=== PATIENT | female | born 1970 | race Caucasian/White ===

== ENCOUNTER 2019-01-14 20:00 | Inpatient (IN) | payer MEDICAID ==
[2019-01-14] MEDS: SODIUM CHLORIDE 0.9% 1L BAG IV* (20:50)
[2019-01-14] MEDS: morphine 4 MG/ML VIAL IV (20:52)
[2019-01-14] MEDS: ONDANSETRON 4 MG INJ IV (20:52)
[2019-01-14] MEDS: PIPER-TAZO 3.375 GM IV (PMX) 100 ML IVPB (20:53)
[2019-01-14] MEDS: ACETAMINOPHEN 325 MG TAB PO (20:53)
[2019-01-14 20:57] LABS: ABNORMAL IP MESSAGE 1; HEMATOCRIT 33.4 % (37.0-47.0); HEMOGLOBIN 11.1 g/dl (12.0-16.0); MEAN CORPUSCULAR HEMOGLOBIN 27.5 pg (29.0-33.0); MEAN CORPUSCULAR HGB CONC 33.2 g/dl (32.0-37.0); MEAN CORPUSCULAR VOLUME 82.7 fl (82.0-101.0); MEAN PLATELET VOLUME 13.8 fl (7.4-10.4); NUCLEATED RED BLOOD CELLS% 0.3 /100WBC (0.0-0.0); PLATELET COUNT 269 10^3/UL (140-415); RED BLOOD COUNT 4.04 10^6/ul (4.20-5.40); RED CELL DISTRIBUTION WIDTH 16.2 % (11.5-14.5)
[2019-01-14 20:57] LABS: WHITE BLOOD COUNT 14.7 10^3/ul (4.8-10.8)
[2019-01-14 21:00] LABS: POSITIVE DIFF @See below
[2019-01-14 21:01] LABS: ADD MAN DIFF? YES
[2019-01-14 21:16] LABS: INR 1.21; PROTIME 15.4 Sec (11.9-14.9); PT RATIO 1.2
[2019-01-14 21:17] LABS: PARTIAL THROMBOPLASTIN TIME 33.1 Sec (23.0-35.0)
[2019-01-14 21:18] LABS: ALANINE AMINOTRANSFERASE 42 IU/L (13-69); ALBUMIN 2.7 g/dl (3.3-4.9); ALBUMIN/GLOBULIN RATIO 0.65; ALKALINE PHOSPHATASE 304 IU/L (42-121); ANION GAP 14 (5-13); ASPARTATE AMINO TRANSFERASE 34 IU/L (15-46); BILIRUBIN,INDIRECT 0.3 mg/dl (0-1.1); BILIRUBIN,TOTAL 0.3 mg/dl (0.2-1.3); BLOOD UREA NITROGEN 56 mg/dl (7-20); CALCIUM 8.3 mg/dl (8.4-10.2); CARBON DIOXIDE 23 mmol/L (21-31); CHLORIDE 87 mmol/L (97-110); Estimated GFR 27 mL/min (>60); POTASSIUM 3.5 mmol/L (3.5-5.1); SODIUM 124 mmol/L (135-144); TOTAL PROTEIN 6.8 g/dl (6.1-8.1)
[2019-01-14 21:26] LABS: TROPONIN-I 0.018 ng/ml (0.000-0.120)
[2019-01-14 21:27] LABS: GLUCOSE 631 mg/dl (70-220)
[2019-01-14] MEDS: CLINDAMYCIN 900 MG/D5W (PMX) 50 ML IVPB (21:35)
[2019-01-14] MEDS: VANCOMYCIN 1 GM (PMX) 250 ML IVPB (21:36)
[2019-01-14 21:50] LABS: ANISOCYTOSIS 1+ (0-0); BAND NEUTROPHILS #M 2.6 10^3/ul (0.0-0.6); BAND NEUTROPHILS % (M) 18 % (0-4); GIANT THROMBO% (M) 1 % (0-0); LYMPHOCYTES #M 0.8 10^3/ul (0.8-2.9); LYMPHOCYTES % (M) 6 % (15-51); MONOCYTE #M 0.7 10^3/ul (0.3-0.9); MONOCYTES % (M) 5 % (0-11); MYELOCYTES #M 0.1 10^3/ul (0.0-0.0); MYELOCYTES % (M) 1 % (0-0); PLATELET ESTIMATE NORMAL; POIKILOCYTOSIS 1+ (0-0); POLYCHROMASIA 1+ (0-0); PROMYELOCYTES #M 0.1 10^3/ul (0-0); PROMYELOCYTES % (M) 1 % (0-0); SEG NEUT #M 10.5 10^3/ul (1.6-7.5); SEGMENTED NEUTROPHILS (M) % 69 % (39-77); SMUDGE%M 3 % (0-0)
[2019-01-14 22:00] LABS: C-REACTIVE PROTEIN 58.9 mg/dl (0.0-0.9)
[2019-01-14] MEDS ORDERED: GLUCOSE GEL 15 GRAM TUBE PO ×2 (22:00)
[2019-01-14] MEDS ORDERED: GLUCOSE GEL 15 GRAM TUBE BUCCAL (22:00)
[2019-01-14] MEDS ORDERED: GLUCAGON 1 MG INJ IM (22:00)
[2019-01-14] MEDS ORDERED: DEXTROSE 50% 50 ML SYRINGE IV ×2 (22:00)
[2019-01-14 22:12] LABS: ERYTHROCYTE SEDIMENTATION RATE 125 mm/Hr (0-20)
[2019-01-14] MEDS: ACCU-CHEK XX (22:38)
[2019-01-14] MEDS: INSULIN LISPRO 100 UNIT/ML VIAL SC (23:03)
[2019-01-14 23:06] LABS: LACTIC ACID 2.3 mmol/L (0.5-2.0)
[2019-01-15] MEDS ORDERED: ONDANSETRON 4 MG INJ IV (01:00)
[2019-01-15] MEDS: ACCU-CHEK XX ×4 (01:00→04:00)
[2019-01-15] MEDS ORDERED: IPRATROPIUM (HFA) 12.9 GM INHALER INH (01:00)
[2019-01-15] MEDS ORDERED: DEXTROSE 50% 50 ML SYRINGE IV ×2 (01:00)
[2019-01-15] MEDS ORDERED: INSULIN HUMAN REGULAR 100 UNIT in SOD CHLORIDE 0.9% 99 ML IV (01:00)
[2019-01-15] MEDS ORDERED: VANCOMYCIN IV PER PHARMACY XX (01:00)
[2019-01-15] MEDS ORDERED: ALBUTEROL HFA 8 GM INHALER INH (01:00)
[2019-01-15] MEDS ORDERED: ACETAMINOPHEN 650 MG SUPP PR (01:00)
[2019-01-15] MEDS ORDERED: PROPOFOL 20 ML (01:07)
[2019-01-15 01:35] LABS: LACTIC ACID 4.4 mmol/L (0.5-2.0)
[2019-01-15] MEDS ORDERED: HYDROmorphONE 0.5 MG/0.5 ML SYG (03:24)
[2019-01-15] MEDS: SOD CHLORIDE 0.9% 1,000 ML IV ×2 (03:26→04:30)
[2019-01-15] MEDS: HYDROmorphONE 0.5 MG/0.5 ML SYG IV (03:26)
[2019-01-15] MEDS: INSULIN REGULAR, HUMAN 100 UNIT/1 ML 3ML VIAL SC (04:12)
[2019-01-15] MEDS ORDERED: VANCOMYCIN 750 MG (PMX) 250 ML IVPB (04:30)
[2019-01-15] MEDS ORDERED: PIPER-TAZO 3.375 GM IV (PMX) 100 ML IVPB (06:00)
[2019-01-15] MEDS ORDERED: PANTOPRAZOLE 40 MG INJ IV (06:00)
[2019-01-15] MEDS ORDERED: PIPER-TAZO 2.25 GM/NS 50 ML IVPB (06:00)
== END 2019-01-15 05:30 | disposition short-term general hospital (02) | DRG 871 ==
LOC: REC 22:43 → E/R 20:00 → ICU 01-15 03:22
DX: A41.9 Sepsis, unspecified organism (principal); M72.6 Necrotizing fasciitis; E87.1 Hypo-osmolality and hyponatremia; E10.52 Type 1 diabetes mellitus with diabetic peripheral angiopathy with gangrene; I96 Gangrene, not elsewhere classified; E87.2 Acidosis; Z79.4 Long term (current) use of insulin; N28.9 Disorder of kidney and ureter, unspecified; E10.65 Type 1 diabetes mellitus with hyperglycemia; D64.9 Anemia, unspecified
CPT/HCPCS: 36415; 71045; 74176; 80053; 82962; 83605; 84484; 84703; 85025; 85610; 85651; 85730; 86140; 86850; 86900; 86901; 87040-91; 93005; 96365; 96367; 96375; 99285-25